=== PATIENT | male | born 2000 | race African-American/Black ===

== ENCOUNTER 2025-02-01 09:56 | Emergency (ER) | payer OTHER ==
[~2025-02-01] VITALS: Ht 180.3 cm; Wt 104.1 kg
[2025-02-01 12:28] VITALS: BP 140/82; TEMP 97.4; O2SAT 99
== END 2025-02-01 12:34 | disposition home or self-care (01) ==
LOC: M ED 09:56
DX: S39.011A Strain of muscle, fascia and tendon of abdomen, initial encounter (principal); X50.0XXA Overexertion from strenuous movement or load, initial encounter; Y92.9 Unspecified place or not applicable; Y93.89 Activity, other specified; Y99.9 Unspecified external cause status